=== PATIENT | female | born 1950 | race Caucasian/White ===

== ENCOUNTER 2022-04-19 00:48 | Emergency (ER) | payer MEDICARE, OTHER ==
[~2022-04-19 00:48] MED LIST: ALEVE220 M1 PO; ALL DAY ALLERGY10 M3 PO; CARAFATE1 G1 PO; CERTAGEN1 EACH PO; DULERA 200 MCG8.8 GM INH; FEOSOL325 MG PO; HYDROCODONE-APA1 TAB PO; LISINOPRIL-HCT1 EAC1 PO; LOPRESSOR50 MG PO; MICON-GUARD 2% TOP; MINOCIN100 MG PO; NICOTINE PATCH1 EAC2 EXT; OMEPRAZOLE40 MG PO; OS-CAL500 MG PO; PANTOPRAZOLE SO40 MG PO; PERCOCET 5-3251 EACH PO; POTASSIUM CHLO20 ME2 PO; PREVACID30 M1 PO; PROVENTIL HFA6.7 GM INH; REMOVE EXT; SPIRIVA 185 PUFFS/IN INH; ULTRA-LIGHT RO1 EACH XX; VITAMIN D325 MC1 PO; XARELTO10 MG PO
== END 2022-04-19 03:23 | disposition home or self-care (01) ==
LOC: FER 00:48
DX: S01.01XA Laceration without foreign body of scalp, initial encounter (principal); F10.129 Alcohol abuse with intoxication, unspecified; I10 Essential (primary) hypertension; F17.210 Nicotine dependence, cigarettes, uncomplicated; W19.XXXA Unspecified fall, initial encounter; Y92.009 Unspecified place in unspecified non-institutional (private) residence as the place of occurrence of the external cause
CPT/HCPCS: 70450; 72125

== ENCOUNTER 2022-05-27 16:48 | Emergency (ER) | payer MEDICARE, OTHER ==
[2022-05-27 18:10] LABS: BASOPHIL 0.4 % (0-2); EOSINOPHIL 0.3 % (0-7); HCT 35.9 % (37.0-47.0); HGB 12.6 g/dl (12.5-16.0); LYMPHOCYTE 13.9 % (15-48); MCHC 35.1 g/dL (32.0-36.0); MCV 99.7 fL (78.0-100.0); MONOCYTE 10.2 % (0-12); MPV 9.3 fL (6.0-9.5); NEUTROPHIL 74.6 % (41-80); NRBC 0; PLT 254 K/uL (150-400); WBC 9.6 K/uL (4.0-10.5)
[2022-05-27] MEDS ORDERED: NORCO 5-325 TA1 EACH PO (18:58)
[2022-05-27] MEDS ORDERED: BACTRIM DS TAB1 EACH PO (18:58)
== END 2022-05-27 19:29 | disposition home or self-care (01) ==
LOC: FER 16:48
PROVIDERS: Emergency Medicine
DX: L02.511 Cutaneous abscess of right hand (principal); I10 Essential (primary) hypertension; F17.210 Nicotine dependence, cigarettes, uncomplicated
CPT/HCPCS: 36415; 73130; 85025; 86140